=== PATIENT | female | born 1980 | race Caucasian/White ===

== ENCOUNTER 2017-07-14 07:56 | Emergency (ER) | payer BC ==
[2017-07-14 08:13] VITALS: BP 105/64
--- NOTE | 2017-07-14 09:13 | UC ---
Respiratory Complaint HPI - HPI Summary HPI Summary: Nasal congestion and pressure. She has a cough. She has no known lung or sinus disease. No fever or aches. - History of Current Complaint Chief Complaint: UCGeneralIllness Stated Complaint: SINUS,EARS,COUGH Time Seen by Provider: 07/14/17 08:58 Hx Obtained From: Patient Hx Last Menstrual Period: 07/03/17 ?: No Onset/Duration: Gradual Onset, Lasting Days Timing: Constant Severity Initially: Moderate Severity Currently: Moderate Pain Intensity: 7 Character: Cough: Nonproductive Aggravating Factors: Deep Breaths, Recumbent Position Alleviating Factors: Upright Position, Spontaneous Resolution Associated Signs And Symptoms: Positive: URI, Nasal Congestion, Sinus Discomfort. Negative: Dyspnea, Fever, Chills, Calf Pain, Calf Swelling - Allergies/Home Medications Allergies/Adverse Reactions: Allergies Allergy/AdvReac Type Severity Reaction Status Date / Time Sulfa (Sulfonamide Allergy Hives Verified 07/14/17 08:13 Antibiotics) Home Medications: Home Medications Norethindr/Eth Estradiol(Nf) [Lo Loestrin Fe (NF)] 1 tab PO DAILY 07/14/17 [ History Confirmed 07/14/17] Thyroid,Pork [Edwards Thyroid] 75 mg PO DAILY 07/14/17 [History Confirmed ] PMH/Surg Hx/FS Hx/Imm Hx Previously Healthy: No - marta's thyroiditis. - Surgical History Surgical History: None - Family History Known Family History: Positive: Other - no related sinus disease. - Social History Occupation: Employed Full-time Alcohol Use: None Substance Use Type: None Smoking Status (MU): Never Smoked Tobacco Review of Systems ENT: Sinus Congestion Respiratory: Cough All Other Systems Reviewed And Are Negative: Yes Physical Exam Triage Information Reviewed: Yes Appearance: Well-Appearing, No Pain Distress, Well-Nourished Vital Signs: Initial Vital Signs Temp 99.5 F 07/14/17 08:06 Pulse 89 07/14/17 08:06 Resp 18 07/14/17 08:06 BP 105/64 07/14/17 08:06 Pulse Ox 100 07/14/17 08:06 Vital Signs Reviewed: Yes Eyes: Positive: Conjunctiva Clear ENT: Positive: Normal ENT inspection, Pharynx normal, Nasal congestion, TMs normal - Fausto mild clear effusions., Sinus tenderness. Negative: TM bulging, TM dull, TM red, Tonsillar swelling, Tonsillar exudate, Trismus, Muffled voice, Uvula midline Neck: Positive: Supple, Nontender, No Lymphadenopathy Respiratory: Positive: Lungs clear, Normal breath sounds, No respiratory distress, No accessory muscle use. Negative: Respiratory distress, Decreased breath sounds, Accessory muscle use, Crackles, Rhonchi, Stridor, Wheezing Cardiovascular: Positive: No Murmur, Pulses Normal Abdomen Description: Positive: No Organomegaly, Soft. Negative: Distended, Guarding Musculoskeletal: Positive: Strength Intact, ROM Intact, No Edema Neurological: Positive: Alert, Muscle Tone Normal. Negative: Fatigued Psychological: Positive: Age Appropriate Behavior Skin: Negative: rashes UC Diagnostic Evaluation - Laboratory O2 Sat by Pulse Oximetry: 100 Respiratory Course/Dx - Course Course Of Treatment: nasal irrigation and decongestants but if pain worsens or fever starts, she agrees to return for antibiotics for possible bacterial sinus infection . At this point this is c/w viral uri and viral chest cold. - Differential Dx/Diagnosis Provider Diagnoses: viral uri. Discharge - Discharge Plan Condition: Good Disposition: HOME Patient Education Materials: Upper Respiratory Infection (ED) Referrals: Liberty Marley MD [Primary Care Provider] - Additional Instructions: decongestants and nasal irrigation. Return for any worsening symptoms as we discussed.
== END 2017-07-14 09:14 | disposition home or self-care (01) ==
LOC: UCCORT 07:56
DX: J06.9 Acute upper respiratory infection, unspecified (principal); E06.3 Autoimmune thyroiditis
CPT/HCPCS: 99201; G0463